=== PATIENT | male | born 2000 | race Caucasian/White ===

== ENCOUNTER 2022-04-25 15:00 | Outpatient (CLI) | payer OTHER | END 2022-04-25 15:05 | disposition home or self-care (01) | LOC: RAD 15:00 | DX: S93.401A Sprain of unspecified ligament of right ankle, initial encounter (principal) ==

== ENCOUNTER 2024-04-22 08:11 | Outpatient (CLI) | payer OTHER | END 2024-04-22 08:28 | disposition home or self-care (01) | LOC: SONOGRAMA 08:11 | DX: R10.13 Epigastric pain (principal) ==

== ENCOUNTER 2024-05-14 08:23 | Outpatient (CLI) | payer OTHER | END 2024-05-14 08:24 | disposition home or self-care (01) | LOC: TOM 08:23 | PROVIDERS: ATTEND Internal Medicine Gastroenterology | DX: R10.84 Generalized abdominal pain (principal); K50.00 Crohn's disease of small intestine without complications ==